=== PATIENT | male | born 1985 | race Caucasian/White ===

== ENCOUNTER 2022-05-15 10:33 | Emergency (ER) | payer BC ==
[2022-05-15 11:14] LABS: Bilirubin Neg (Negative); Blood, Urine Negative (Negative); Clarity Clear (Clear); Glucose, Urine (Dipstick) Normal (Negative); Ketone, Urine 5 mg/dL (Negative); Leukocyte 25 (Negative); Nitrite Negative (Negative); Protein, Urine (Dipstick) Negative (Neg-Trace); Specific Gravity, Urine 1.025 (1.005-1.030)
[2022-05-15 11:35] LABS: Bacteria/HPF None Seen HPF (None Seen); RBC/HPF 0-3 HPF (0-3); Squamous Epithelial 0-3 HPF (0-3); WBC/HPF 0-3 HPF (0-3)
== END 2022-05-15 12:12 | disposition home or self-care (01) ==
LOC: CSHERS 10:33
DX: I82.90 Acute embolism and thrombosis of unspecified vein (principal)
CPT/HCPCS: 76870; 81003; 81015; 93976